=== PATIENT | male | born 2000 | race African-American/Black ===

== ENCOUNTER 2018-07-09 17:44 | Emergency (ER) | payer OTHER ==
[2018-07-09] MEDS ORDERED: METAL LOCK LOOP XX (18:00)
[2018-07-09 19:12] LABS: APPEARANCE, URINE HAZY (CLEAR); BACTERIA, URINE AUTO NEGATIVE (NEGATIVE); BILIRUBIN, URINE AUTO NEGATIVE (NEGATIVE); BLOOD, URINE BLOOD NEGATIVE (NEGATIVE); COLOR, URINE YELLOW (YELLOW); GLUCOSE, URINE (UA) AUTO NEGATIVE (NEGATIVE); KETONE, URINE AUTO NEGATIVE (NEGATIVE); LEUKOCYTE ESTERASE, URINE AUTO 2+ (NEGATIVE); MUCUS, URINE SMALL (NEGATIVE); NITRITE, URINE AUTO NEGATIVE (NEGATIVE); PROTEIN, URINE AUTO NEGATIVE (NEGATIVE); RBC, URINE AUTO 8 /HPF (0-3); SPECIFIC GRAVITY URINE AUTO 1.024 (1.002-1.035); SQUAMOUS EPITHELIAL CELL UR AU 0 /HPF (0-6); TRANSITIONAL EPITHELIAL AUTO 1 /HPF; WBC, URINE AUTO 81 /HPF (0-3)
[2018-07-09] MEDS: NITROFURANTOIN (MACROBID) 100 MG CAP PO (19:38)
[2018-07-10 11:10] LABS: CHLAMYDIA DNA AMPLIFICATION POSITIVE (NEGATIVE); GC DNA AMPLIFICATION NEGATIVE (NEGATIVE)
== END 2018-07-09 19:45 | disposition home or self-care (01) ==
LOC: M ED 17:44
DX: N39.0 Urinary tract infection, site not specified (principal); N50.811 Right testicular pain; J45.909 Unspecified asthma, uncomplicated
CPT/HCPCS: 76870

== ENCOUNTER 2019-02-15 18:40 | Emergency (ER) | payer OTHER ==
[~2019-02-15] VITALS: Ht 170.2 cm; Wt 80.9 kg
[2019-02-15 18:40] VITALS: BP 162/81
[~2019-02-15 18:40] MED LIST: HYDR-3715 PO; MACR100C43 PO
[2019-02-15 22:28] LABS: CHLAMYDIA DNA AMPLIFICATION POSITIVE (NEGATIVE); GC DNA AMPLIFICATION NEGATIVE (NEGATIVE)
== END 2019-02-15 20:25 | disposition home or self-care (01) ==
LOC: M ED 18:40
DX: Z20.2 Contact with and (suspected) exposure to infections with a predominantly sexual mode of transmission (principal)

== ENCOUNTER 2019-12-19 11:31 | Emergency (ER) | payer OTHER ==
[~2019-12-19] VITALS: Ht 170.2 cm; Wt 85.3 kg
[2019-12-19 11:31] VITALS: BP 131/61
[2019-12-19] MEDS ORDERED: BENA25CA4 PO (12:52)
[2019-12-19] MEDS ORDERED: CETI10CA2 PO (12:52)
[2019-12-19] MEDS ORDERED: PRED10TA2 PO (12:52)
== END 2019-12-19 13:02 | disposition home or self-care (01) ==
LOC: M ED 11:31
DX: S80.861A Insect bite (nonvenomous), right lower leg, initial encounter (principal); S80.862A Insect bite (nonvenomous), left lower leg, initial encounter; S40.861A Insect bite (nonvenomous) of right upper arm, initial encounter; S40.862A Insect bite (nonvenomous) of left upper arm, initial encounter; S20.96XA Insect bite (nonvenomous) of unspecified parts of thorax, initial encounter; W57.XXXA Bitten or stung by nonvenomous insect and other nonvenomous arthropods, initial encounter; Y92.89 Other specified places as the place of occurrence of the external cause; Z79.899 Other long term (current) drug therapy

== ENCOUNTER 2020-01-25 05:01 | Emergency (ER) | payer OTHER ==
[~2020-01-25] VITALS: Ht 170.2 cm; Wt 86.0 kg
[~2020-01-25 05:01] MED LIST changes: +BENA25CA4 PO; +CETI10CA2 PO; +PRED10TA2 PO
--- NOTE | 2020-01-25 05:48 | ECGEPIP ---
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
[2020-01-25] MEDS ORDERED: NS 1,000 ML IV ONE (06:00)
[2020-01-25] MEDS ORDERED: KETOROLAC 30 MG/ML VIAL (J1885) IV ONE (06:00)
--- NOTE | 2020-01-25 06:23 | REPVR ---
PROCEDURE INFORMATION: Exam: CT Head Without Contrast Exam date and time: 01/25/2020 5:52 AM Age: 19 years old Clinical indication: Injury or trauma; Fall; Initial encounter; Concussion / head injury; Consciousness not specified TECHNIQUE: Imaging protocol: Computed tomography of the head without contrast. Radiation optimization: All CT scans at this facility use at least one of these dose optimization techniques: automated exposure control; mA and/or kV adjustment per patient size (includes targeted exams where dose is matched to clinical indication); or iterative reconstruction. COMPARISON: No relevant prior studies available. FINDINGS: Limitations: Examination is limited by motion artifact. Brain: 2 mm focal hyperdensity in the right sylvian fissure. Series 201, image 16. No significant white matter disease. No edema. Cortical bates-white matter differentiation is preserved. Ventricles: Normal. No ventriculomegaly. Bones/joints: Unremarkable. No acute fracture. Sinuses: Visualized sinuses are unremarkable. No fluid levels. Mastoid air cells: Visualized mastoid air cells are well aerated. Soft tissues: Unremarkable. IMPRESSION: 1. Limited evaluation. 2. 2 mm focal hyperdensity in the right sylvian fissure. Possible vessel versus subarachnoid hemorrhage. Electronically signed by: Adriana Vieira On 01/25/2020 06:23:11 AM
[2020-01-25] MEDS ORDERED: MORPHINE 2 MG/ML 1ML VIAL (J2270) IV ONE (06:30)
[2020-01-25 06:37] LABS: BASO % 0.1 % (0.0-1.0); HEMATOCRIT 45.7 % (42.0-52.0); HEMOGLOBIN 16.2 g/dl (13.5-17.5); LYMPH # 0.6 10^3/uL (1.5-5.0); LYMPH % 4.6 % (24.0-44.0); MEAN CORPUSCULAR HEMOGLOBIN 31.5 pg (27.0-33.0); MEAN CORPUSCULAR HGB CONC 35.4 g/dl (32.0-36.5); MEAN CORPUSCULAR VOLUME 88.9 fl (80.0-96.0); MONO # 0.3 10^3/uL (0.0-0.8); MONO % 2.1 % (0.0-5.0); NEUTROPHILS # 11.6 10^3/uL (1.5-8.5); PLATELET COUNT, AUTOMATED 218 10^3/uL (150-450); RED BLOOD COUNT 5.14 10^6/uL (4.30-6.10); WHITE BLOOD COUNT 12.5 10^3/uL (4.0-10.0)
[2020-01-25] MEDS ORDERED: NS 1,000 ML IV SCH (06:45)
[2020-01-25 07:07] LABS: ETHYL ALCOHOL (ETHANOL) < 0.003 % (0.000-0.010); FREE T4 1.16 NG/DL (0.76-1.46); THYROID STIMULATING HORMONE 0.585 uIU/ML (0.358-3.740)
[2020-01-25 07:09] LABS: AMPHETAMINES LEVEL URINE NEGATIVE (NEGATIVE); BARBITURATES URINE NEGATIVE (NEGATIVE); BENZODIAZEPINES URINE NEGATIVE (NEGATIVE); CANNABINOIDS URINE NEGATIVE (NEGATIVE); COCAINE METABOLITE URINE NEGATIVE (NEGATIVE); METHADONE URINE NEGATIVE (NEGATIVE); OPIATES URINE NEGATIVE (NEGATIVE); PHENCYCLIDINE URINE NEGATIVE (NEGATIVE)
[2020-01-25 07:18] VITALS: BP 163/72
[2020-01-25 07:21] LABS: ALBUMIN 4.7 GM/DL (3.2-5.2); ALT/SGPT 43 U/L (12-78); BILIRUBIN,TOTAL 0.6 MG/DL (0.2-1.0); BLOOD UREA NITROGEN 11 MG/DL (7-18); CALCIUM LEVEL 9.7 MG/DL (8.5-10.1); CARBON DIOXIDE LEVEL 25 MEQ/L (21-32); CHLORIDE LEVEL 103 MEQ/L (98-107); CREATININE FOR GFR 1.26 MG/DL (0.70-1.30); GLOMERULAR FILTRATION RATE > 60.0 (>60); GLUCOSE, FASTING 106 MG/DL (70-100); POTASSIUM SERUM 4.8 MEQ/L (3.5-5.1); SODIUM LEVEL 138 MEQ/L (136-145)
--- NOTE | 2020-01-25 08:08 | REP ---
Chest x-ray: Two views. History: Syncope . Comparison study: No comparison study . Findings: The lungs are well inflated and free of infiltrate. The pleural angles are sharp. The heart size is normal. Pulmonary vasculature is not increased. No significant bony abnormality is seen. Impression: Negative chest x-ray. Electronically Signed by Robinson Landis MD 01/25/2020 08:00 A
== END 2020-01-25 07:20 | disposition short-term general hospital (02) ==
LOC: M ED 05:01
DX: R55 Syncope and collapse (principal); R93.0 Abnormal findings on diagnostic imaging of skull and head, not elsewhere classified; S00.81XA Abrasion of other part of head, initial encounter; W19.XXXA Unspecified fall, initial encounter; Y92.018 Other place in single-family (private) house as the place of occurrence of the external cause
CPT/HCPCS: 70450; 71046; 80053; 80307; 83735; 84439; 84443; 85025; 93005; 93041; 94760; 96374; 96375; 99285; G0480; J2270

== ENCOUNTER 2021-05-29 19:33 | Emergency (ER) | payer OTHER ==
[~2021-05-29] VITALS: Ht 170.2 cm; Wt 92.5 kg
[2021-05-29 19:35] VITALS: BP 143/90
[2021-05-29] MEDS ORDERED: MUCI600T31 PO (19:45)
[2021-05-29 22:14] LABS: RSV AMPLIFICATION NEGATIVE (NEGATIVE)
== END 2021-05-29 23:17 | disposition home or self-care (01) ==
LOC: M ED 19:33
DX: J06.9 Acute upper respiratory infection, unspecified (principal); Z20.828 Contact with and (suspected) exposure to other viral communicable diseases